=== PATIENT | female | born 1980 | race Caucasian/White ===

== ENCOUNTER 2019-10-03 07:58 | Inpatient (IN) | payer BC ==
[~2019-10-03] VITALS: Ht 167.6 cm; Wt 97.7 kg
[2019-10-03] MEDS ORDERED: OXYTOCIN 30U/ 0.9% NaCL 500ML 500 ML IV ONE (08:17)
[2019-10-03] MEDS ORDERED: D5%-LACTATED RINGERS 1,000 ML IV SCH (08:17)
[2019-10-03] MEDS ORDERED: FENTANYL PF 100 MCG/2ML IVPush PRN (08:30)
[2019-10-03] MEDS ORDERED: SODIUM CITRATE/CITRIC ACID 30 ML UDC PO PRN (08:30)
[2019-10-03] MEDS ORDERED: METOCLOPRAMIDE 5 MG/ML, 2ML IVPush PRN (08:30)
[2019-10-03] MEDS ORDERED: TERBUTALINE 1 MG/ML, 1ML IVPush PRN (08:30)
[2019-10-03] MEDS ORDERED: TERBUTALINE 1 MG/ML, 1ML SQ PRN (08:30)
[2019-10-03] MEDS ORDERED: PENICILLIN GK 5,000,000 UNITS in DEXTROSE 5% 100 ML IVPB ONE (08:30)
[2019-10-03] MEDS ORDERED: SODIUM CHLORIDE FLUSH 10ML SYR IVF PRN (08:30)
[2019-10-03] MEDS ORDERED: ONDANSETRON 2MG/ML, 2ML IVPush PRN (08:30)
[2019-10-03] MEDS ORDERED: FENTANYL PF 100 MCG/2ML IV PRN (08:30)
[2019-10-03] MEDS ORDERED: OXYTOCIN 10 UNITS/ML, 1ML ONE (08:33)
[2019-10-03] MEDS ORDERED: NEWBORN KIT ONE (08:33)
[2019-10-03] MEDS ORDERED: MISOPROSTOL 200 MCG TABLET ONE (08:33)
[2019-10-03] MEDS ORDERED: OXYTOCIN 30U/ 0.9% NaCL 500ML 500 ML ONE (08:33)
[2019-10-03] MEDS ORDERED: LIDOCAINE 1%, 20ML ONE (08:34)
[2019-10-03 08:52] LABS: BASOPHILS # (AUTO) 0.02 x10^3/uL (0-0.1); BASOPHILS % (AUTO) 0 % (0-1); EOSINOPHILS # (AUTO) 0.03 x10^3/uL (0-0.4); EOSINOPHILS % (AUTO) 0 % (1-7); LYMPHOCYTES # (AUTO) 0.98 x10^3/uL (1-3.4); LYMPHOCYTES % (AUTO) 9 % (22-44); MD NO; MEAN CORPUSCULAR HEMOGLOBIN 33.2 pg (27.0-34.8); MEAN CORPUSCULAR HGB CONC 34.1 g/dL (32.4-35.8); MEAN CORPUSCULAR VOLUME 97.5 fL (80-100); MEAN PLATELET VOLUME 8.9 fL (7.4-10.4); MONOCYTES # (AUTO) 0.47 x10^3/uL (0.2-0.8); MONOCYTES % (AUTO) 5 % (2-9); NEUTROPHILS # (AUTO) 9.09 x10^3/uL (1.8-6.8); NEUTROPHILS % (AUTO) 86 % (42-75); PLATELET COUNT 171 x10^3/uL (130-400); RED BLOOD COUNT 4.46 x10^6/uL (3.82-5.3); RED CELL DISTRIBUTION WIDTH 14.3 % (9.6-15.2)
[2019-10-03] MEDS: LACTATED RINGERS 1,000 ML IV SCH ×2 (09:00→16:17)
[2019-10-03] MEDS ORDERED: PENICILLIN GK 2,500,000 UNITS in DEXTROSE 5% 100 ML IVPB SCH (12:30)
[2019-10-03] MEDS: OXYTOCIN 30U/ 0.9% NaCL 500ML 500 ML IV SCH ×2 (13:21→23:21)
[2019-10-03] MEDS ORDERED: MISOPROSTOL 200 MCG TABLET PR PRN (13:30)
[2019-10-03] MEDS ORDERED: ONDANSETRON 2MG/ML, 2ML IV PRN (13:30)
[2019-10-03] MEDS ORDERED: SIMETHICONE 80 MG CHEW TAB PO PRN (13:30)
[2019-10-03] MEDS ORDERED: OXYcodone IR 5MG TABLET PO PRN (13:30)
[2019-10-03] MEDS ORDERED: IBUPROFEN 600 MG TABLET PO PRN (13:30)
[2019-10-03] MEDS ORDERED: ACETAMINOPHEN 325 MG TABLET PO PRN (13:30)
[2019-10-03] MEDS ORDERED: METHYLERGONOVINE 0.2 MG/ML IM PRN (13:30)
[2019-10-03] MEDS ORDERED: RHOGAM FROM BLOOD BANK 1 NOTE EA IM/IV ONE (13:30)
[2019-10-03] MEDS ORDERED: OXYcodone/APAP 5/325MG TABLET PO PRN (13:30)
[2019-10-03 15:00] VITALS: BP 125/78
[2019-10-03 20:13] LABS: BASOPHILS # (AUTO) 0.05 x10^3/uL (0-0.1); BASOPHILS % (AUTO) 0 % (0-1); EOSINOPHILS # (AUTO) 0.02 x10^3/uL (0-0.4); EOSINOPHILS % (AUTO) 0 % (1-7); LYMPHOCYTES # (AUTO) 1.34 x10^3/uL (1-3.4); LYMPHOCYTES % (AUTO) 8 % (22-44); MD NO; MEAN CORPUSCULAR HEMOGLOBIN 32.6 pg (27.0-34.8); MEAN CORPUSCULAR HGB CONC 33.5 g/dL (32.4-35.8); MEAN CORPUSCULAR VOLUME 97.4 fL (80-100); MEAN PLATELET VOLUME 8.8 fL (7.4-10.4); MONOCYTES # (AUTO) 0.91 x10^3/uL (0.2-0.8); MONOCYTES % (AUTO) 6 % (2-9); NEUTROPHILS # (AUTO) 13.87 x10^3/uL (1.8-6.8); NEUTROPHILS % (AUTO) 86 % (42-75); PLATELET COUNT 166 x10^3/uL (130-400); RED BLOOD COUNT 4.14 x10^6/uL (3.82-5.3); RED CELL DISTRIBUTION WIDTH 14.6 % (9.6-15.2)
[2019-10-03 21:30] VITALS: BP 128/79
[2019-10-03] MEDS: DOCUSATE 100 MG CAPSULE PO PRN (21:40)
[2019-10-04] MEDS: LACTATED RINGERS 1,000 ML IV SCH ×2 (00:17→08:17)
[2019-10-04 02:00] VITALS: BP 116/89
[2019-10-04 05:45] VITALS: BP 119/83
[2019-10-04 07:45] VITALS: BP 119/78
[2019-10-04] MEDS ORDERED: PRENATAL VIT/IRON/FA 1 EACH TABLET PO SCH (09:00)
[2019-10-04] MEDS: OXYTOCIN 30U/ 0.9% NaCL 500ML 500 ML IV SCH (09:21)
[2019-10-04] MEDS: DOCUSATE 100 MG CAPSULE PO PRN (09:31)
[2019-10-04] MEDS ORDERED: DOCU-131 PO (11:41)
[2019-10-04] MEDS ORDERED: IBUP-1222 PO (11:41)
== END 2019-10-04 13:30 | disposition home or self-care (01) | DRG 807 ==
LOC: LDOP 07:58 → LDIP 08:21 → 2NW 14:30
PROVIDERS: ADMIT Obstetrics & Gynecology Maternal & Fetal Medicine; ATTEND Obstetrics & Gynecology Maternal & Fetal Medicine
PROC: 10E0XZZ Delivery of Products of Conception, External Approach (ICD-10-PCS; principal; 2019-10-03)
PROC: 0KQM0ZZ Repair Perineum Muscle, Open Approach (ICD-10-PCS; 2019-10-03)
DX: O99.824 Streptococcus B carrier state complicating childbirth (principal); Z37.0 Single live birth; O77.0 Labor and delivery complicated by meconium in amniotic fluid; O70.1 Second degree perineal laceration during delivery; Z3A.40 40 weeks gestation of pregnancy; O69.1XX0 Labor and delivery complicated by cord around neck, with compression, not applicable or unspecified; O66.0 Obstructed labor due to shoulder dystocia
CPT/HCPCS: 36415; 82803; 85025; 86592; 86850; 86900; G0378; J2540; J7120